=== PATIENT | female | born 1945 | race Caucasian/White ===

== ENCOUNTER 2017-03-24 05:42 | Day surgery (SDC) | payer OTHER ==
[2017-03-24] MEDS ORDERED: ceFAZolin 2 GM/DEXTROSE 100 ML IV ONE (06:15)
[2017-03-24] MEDS ORDERED: LIDOCAINE 1% 2 ML INJ ID PRN (06:24)
[2017-03-24] MEDS ORDERED: LR 1,000 ML IV ONE (06:24)
[2017-03-24] MEDS ORDERED: MIDAZOLAM 2 MG/2 ML VIAL IVP ONE (06:59)
--- NOTE | 2017-03-24 06:59 | PDANEPAE ---
ANE History of Present Illness here for chest wall ex biopsy ANE Past Medical History - Cardiovascular History Hx Hypertension: No Hx Arrhythmias: No Hx Chest Pain: No Hx Coronary Artery / Peripheral Vascular Disease: No Hx CHF / Valvular Disease: No Hx Palpitations: No Cardiovascular History Comment: Benign heart murmur. - Pulmonary History Hx COPD: No Hx Asthma/Reactive Airway Disease: No Hx Recent Upper Respiratory Infection: No Hx Oxygen in Use at Home: No Hx Sleep Apnea: No Sleep Apnea Screening Result - Last Documented: Negative Pulmonary History Comment: seasonal allergies - Neurologic History Hx Cerebrovascular Accident: No Hx Seizures: Yes Hx Dementia: No Neurologic History Comment: Temporal lobe epilepsy. - Endocrine History Hx Diabetes: No - Renal History Hx Renal Disorders: No - Liver History Hx Hepatic Disorders: Yes Hepatic History Comment: Unable to process Tylenol - Neurological & Psychiatric Hx Hx Neurological and Psychiatric Disorders: Yes Neurological / Psychiatric History Comment: anxiety - Cancer History Hx Cancer: Yes Cancer History Comment: BREAST CANCER 10/2015- mastectomy and chemo. basal cell- removed - Congenital Disorder History Hx Congenital Disorders: Yes Congenital History Comment: Genetic spinal curvature. - GI History Hx Gastrointestinal Disorders: Yes Gastrointestinal History Comment: Chronic diverticulitis. - Other Health History Other Health History: Mild macular degeneration. L eye optic nerve injury. Rosecea on face.Osteoarthritis in joints. HX. of uterine fibroids. wears glasses - Chronic Pain History Chronic Pain: No - Surgical History Prior Surgeries: 11/23/15 bilateral mastectomy with sentinel node with Mina. SIGMOID COLON REMOVAL - 09/2014. 1999-L4/5,L5/S1 fusion. 1981-L parotid gland removal. ANE Review of Systems - Exercise capacity METS (RN): 4 METS ANE Patient History - Allergies Allergies/Adverse Reactions: acetaminophen [From Tylenol] Allergy (Intermediate, Verified 03/23/17 17:05) Other-Enter Comments Shellfish *RETIRED-06/04/12 [Shellfish] Allergy (Intermediate, Verified 14:14) strawberry Allergy (Intermediate, Verified 10/22/14 09:19) Unknown NSAIDS (Non-Steroidal Anti-Inflamma Allergy (Mild, Verified 06/02/12 13:07) Other-Enter Comments - Home Medications Home Medications: LORazepam [Ativan (*)] 10/01/14 [Last Taken 03/23/17 20:30] Pregabalin [Lyrica] 10/01/14 [Last Taken 03/24/17 03:00] Herbals/Supplements -Info Only 03/23/17 [Last Taken 03/23/17 06:30] Loratadine 03/23/17 [Last Taken 03/23/17 06:30] - NPO status NPO Since - Liquids (Date): 03/23/17 NPO Since - Liquids (Time): 03:00 NPO Since - Solids (Date): 03/23/17 NPO Since - Solids (Time): 18:00 - Smoking Hx Smoking Status: Never smoked - Family Anes Hx Family Hx Anesthesia Complications: NONE ANE Labs/Vital Signs - Vital Signs Blood Pressure: 135/81 Heart Rate: 66 Respiratory Rate: 16 O2 Sat (%): 97 Height: 162.56 cm Weight: 60.328 kg ANE Physical Exam - Airway Neck exam: FROM Mallampati Score: Class 1 Mouth exam: normal dental/mouth exam - Pulmonary Pulmonary: no respiratory distress - Cardiovascular Cardiovascular: regular rate and rhythym - ASA Status ASA Status: II ANE Anesthesia Plan Anesthesia Plan: MAC
--- NOTE | 2017-03-24 07:00 | PDHPUP ---
History & Physical Update H&P update statement: This history and physical update is based on an assessment of the patient which was completed after admission or registration (within 24 hours), but prior to the surgery/procedure. H&P update: H&P reviewed & patient examined, no change in patient's condition since H&P completed
[2017-03-24] MEDS ORDERED: fentaNYL 100 MCG/2 ML INJ ONE (07:06)
[2017-03-24] MEDS ORDERED: PROPOFOL/EMULSION 500 MG/50 ML BOTTLE IV ONE (07:07)
[2017-03-24] MEDS ORDERED: MIDAZOLAM 2 MG/2 ML VIAL ONE (07:14)
[2017-03-24] MEDS ORDERED: BUPIVACAINE 0.5% 30 ML SDV ONE (07:29)
[2017-03-24] MEDS ORDERED: LIDO/EPI 1% **Not for Epidural 20 ML MDV ONE (07:29)
[2017-03-24] MEDS ORDERED: BUPIVACAINE/EPI 0.5% 30 ML SDV ONE (07:29)
[2017-03-24] MEDS ORDERED: LIDOCAINE 1% 300 MG/30 ML SDV ONE (07:30)
--- NOTE | 2017-03-24 07:42 | POSTOPPROG ---
Post Op Note Date of Operation: 03/24/17 Surgeon: Donna Enriquez Parts Consultant: jamie Anesthesiologist: rahul Anesthesia: IV Sedation Pre-op Diagnosis: excess breast tissue Post-op Diagnosis: same Indication: 71 year old s/p bilateral mastectomy with additional tissue by sternum. US Procedure: excision skin soft tissue Findings: no unusual Inf/Abcess present in the surg proc area at time of surgery?: No EBL: Minimal Specimen(s): chest wall tissue
[2017-03-24] MEDS ORDERED: NALOXONE HCL 0.4 MG/ML INJ IVP PRN (08:18)
[2017-03-24] MEDS ORDERED: fentaNYL 100 MCG/2 ML INJ IVP PRN (08:18)
[2017-03-24] MEDS ORDERED: ONDANSETRON 4 MG/2 ML VIAL IVP PRN (08:18)
--- NOTE | 2017-03-24 08:26 | GOP ---
[f rep st] OPERATIVE REPORT DATE OF OPERATION: 03/23/2017 SURGEON: Donna Enriquez MD HEART COORDINATOR: Mary Jane Ventura, LICO. ANESTHESIA: IV sedation. ANESTHESIOLOGIST: Chris Raza MD. PREOPERATIVE DIAGNOSIS: History of breast cancer with additional tissue by sternum. POSTOPERATIVE DIAGNOSIS: History of breast cancer with additional tissue by sternum. PROCEDURE PERFORMED: Excision skin, soft tissue, at sternum. Specimen measured approximately 3 x 1 0 x 1 cm. FINDINGS: No unusual findings. ESTIMATED BLOOD LOSS: 5 cc. INDICATIONS: The patient is a 71-year-old, status post bilateral mastectomy for breast cancer. She had a fullness by her sternum. She had an ultrasound performed, which showed residual breast tissu e. She presents for excision. DESCRIPTION OF PROCEDURE: The patient was brought into the operating room, placed supine on the tab le. Monitored anesthesia care with IV sedation was performed. Her chest was prepped and draped in the usual sterile fashion. I infiltrated the area with 0.5% Marcaine mixed with 1% lidocaine. I ma de an ellipse around the excess tissue. I dissected down until I could see the edge of the pectoral is on either side. I excised the skin, soft tissue, and adipose tissue. Hemostasis was achieved. The wound was closed with 3-0 Vicryl, followed by 4-0 Monocryl. Mastisol, Steri-Strips, sterile lucie ssing were applied. She tolerated the procedure well. /[id number]/MODL
[2017-03-24 09:00] VITALS: BP 140/70; PULSE 55; RESP 16; TEMP 97.5; O2SAT 94
== END 2017-03-24 09:28 | disposition home or self-care (01) ==
LOC: FSGY 05:42
PROVIDERS: ATTEND Surgery
PROC: 0JB60ZZ Excision of Chest Subcutaneous Tissue and Fascia, Open Approach (ICD-10-PCS; principal; 2017-03-24 07:15)
DX: R22.2 Localized swelling, mass and lump, trunk (principal); Z85.3 Personal history of malignant neoplasm of breast; Z80.3 Family history of malignant neoplasm of breast; F41.8 Other specified anxiety disorders; J45.909 Unspecified asthma, uncomplicated; Z90.13 Acquired absence of bilateral breasts and nipples; Z92.21 Personal history of antineoplastic chemotherapy
CPT/HCPCS: J0690; J2250; J2704; J3010

== ENCOUNTER → 2018-04-06 | Outpatient (CLI) | payer OTHER | LOC: FIMAGING 06:58 | PROVIDERS: ATTEND Physical Medicine & Rehabilitation | DX: M53.3 Sacrococcygeal disorders, not elsewhere classified (principal); D25.9 Leiomyoma of uterus, unspecified ==